=== PATIENT | male | born 1955 | race Two or more races ===

== ENCOUNTER 2016-04-26 12:32 | Emergency (ER) | payer OTHER ==
[~2016-04-26] VITALS: Ht 188 cm; Wt 158.8 kg
[2016-04-26 13:57] VITALS: BP 117/71
== END 2016-04-26 13:58 | disposition home or self-care (01) ==
LOC: ER 12:37
DX: J20.9 Acute bronchitis, unspecified (principal); I25.2 Old myocardial infarction; Z88.6 Allergy status to analgesic agent
CPT/HCPCS: 71010-TC; A4606; Z7610

== ENCOUNTER 2017-02-28 04:50 | Inpatient (IN) | payer SELFPAY ==
[~2017-02-28] VITALS: Ht 190.5 cm; Wt 171.5 kg
--- NOTE | 2017-02-28 04:55 | NUR ---
PT BIB GIRLFRIEND WITH A C/O SOB X 2 DAYS. PT IS SPEAKING IN COMPLETE SENTENCES. BREATH SOUNDS BILATERALLY. PT IS ALSO C/O GENERAL BODY ACHES. PT WAS ASSISTED INTO THE ER VIA WC FROM THE CAR. PT AMBULATED FROM THE WC TO THE RNEY. PT WAS PLACED ON THE MONITOR AND CONTINUOUS PULSE OX. PT SAT 97% ON RA. PT IS NOT SURE IF HE HAS HAD A TEMP. PT IS AFEBRILE.
[2017-02-28] MEDS ORDERED: ONDANSETRON HCL/PF 4 MG/2 ML VIAL IVP ONE (05:00)
[2017-02-28] MEDS ORDERED: MORPHINE SULFATE INJ 2 MG/ML DISP.SYRIN IV ONE (05:00)
[2017-02-28] MEDS ORDERED: IV NS 0.9% 1,000 ML BAG IV ONE (05:00)
[2017-02-28] MEDS ORDERED: ONDANSETRON HCL/PF 4 MG/2 ML VIAL ONE (05:06)
[2017-02-28] MEDS ORDERED: MORPHINE SULFATE INJ 2 MG/ML DISP.SYRIN ONE (05:06)
[2017-02-28] MEDS ORDERED: DILTIAZEM HCL 25 MG IV IV ONE (05:30)
[2017-02-28 05:34] LABS: BASOPHILS % (AUTO) 0.1 % (0.0-2.0); EOSINOPHILS # (AUTO) 0.2 /CMM (0.0-0.7); HEMATOCRIT 50 % (39-51); HEMOGLOBIN 16.8 g/dL (13.5-17.5); LYMPHOCYTES # (AUTO) 1.1 /CMM (0.8-4.8); LYMPHOCYTES % (AUTO) 11.1 % (20.0-44.0); MEAN CORPUSCULAR HEMOGLOBIN 29 PG (26.0-33.0); MEAN CORPUSCULAR HGB CONC 34 g/dl (31.0-36.0); MEAN CORPUSCULAR VOLUME 86 fL (80-96); MONOCYTES # (AUTO) 0.9 /CMM (0.1-1.30); MONOCYTES % (AUTO) 9.6 % (2.0-12.0); NEUTROPHILS # (AUTO) 7.6 /CMM (1.8-8.9); NEUTROPHILS % (AUTO) 77.2 % (43.0-81.0); PLATELET COUNT (AUTO) 183 /CMM (150-450); RDW COEFFICIENT OF VARIATION 13.7 (11.5-15.0); WHITE BLOOD COUNT (AUTO) 9.8 K/uL (4.3-11.0)
[2017-02-28 05:46] LABS: CARBON DIOXIDE 25 mmol/L (21-32); CHLORIDE 104 mmol/L (98-107); CREATININE 1.3 mg/dL (0.6-1.3); GLUCOSE 136 mg/dL (74-106); POTASSIUM 3.8 mmol/L (3.5-5.1); SODIUM SERUM 140 mmol/L (136-145); UREA NITROGEN, BLOOD 9 mg/dL (7-18)
--- NOTE | 2017-02-28 05:48 | NUR ---
PT REC'ING DILTIAZEM FOR NEW ONSET AFIB.
[2017-02-28 05:52] LABS: ALANINE AMINOTRANSFERASE 30 U/L (12-78); ALKALINE PHOSPHATASE 60 U/L (46-116); ASPARTATE AMINOTRANSFERASE 26 U/L (15-37); BILIRUBIN,DIRECT 0.1 mg/dL (0.0-0.2); BILIRUBIN,TOTAL 0.7 mg/dL (0.2-1.0); TROPONIN I < 0.017 ng/mL (0.00-0.056)
--- NOTE | 2017-02-28 05:55 | NUR ---
CARDIZEM 20MG SLOW IVP GIVEN FOR NEW ONSET AFIB/AFLUTTER. ONGOING CARDIAC AND VS MONITORING.
[2017-02-28] MEDS ORDERED: DILTIAZEM HCL 25 MG IV ONE (05:56)
[2017-02-28] MEDS ORDERED: ASPIRIN 325 MG TABLET ONE (05:56)
--- NOTE | 2017-02-28 05:58 | NUR ---
PT IS GOING IN AND OUT OF AFIB/ AFLUTTER. AWARE.
[2017-02-28] MEDS ORDERED: ASPIRIN 325 MG TABLET PO ONE (06:00)
--- NOTE | 2017-02-28 06:02 | NUR ---
PAGED DR SAM.
--- NOTE | 2017-02-28 06:12 | NUR ---
REPORT GIVEN TO GARCÍA LOVELL/CHG
--- NOTE | 2017-02-28 06:25 | NUR ---
PT WAS PLACED ON 2L O2 VIA NC. PT IS SATURATING AT 93-95% ON RA.
--- NOTE | 2017-02-28 06:26 | NUR ---
PT IS BEING TRANSPORTED TO TELE VIA GURNEY PER PROTOCOL.
[2017-02-28] MEDS ORDERED: ACETAMINOPHEN 325 MG TABLET PO PRN (06:30)
[2017-02-28] MEDS ORDERED: LEVALBUTEROL HCL NEB 1.25 MG/0.5 ML VIAL.NEB NEB PRN (06:30)
[2017-02-28] MEDS ORDERED: ONDANSETRON HCL/PF 4 MG/2 ML VIAL IVP PRN (06:30)
[2017-02-28] MEDS ORDERED: HYDROCODONE/APAP 5/325MG 1 EACH TABLET PO PRN (06:30)
[2017-02-28] MEDS ORDERED: MAGNESIUM HYDROXIDE 30 ML UDC PO PRN (06:30)
[2017-02-28] MEDS: PANTOPRAZOLE 40 MG TABLET.DR PO SCH (07:30)
--- NOTE | 2017-02-28 07:30 | NUR ---
SUPERCHARGE REPAIR SUPERVISOR OPENING NOTE PATIENT IS ALERT AND ORIENTED x3. NO PAIN AT THIS TIME. NO SOB OR DISTRESS NOTED. ON ROOM AIR O2 SATURATION AT 94% TOLERATING WELL. ABLE TO COMMUNICATE NEEDS. IV ON LEFT AC 18G INTACT AND PATENT, NO FLUIDS AT THIS TIME. ALL BELONGINGS WITH PATIENT AT BEDSIDE. SKIN INTACT. PATIENT BROUGHT IN BY STATING THAT HE HAS BODY ACHES, COUGH AND FEVER FOR MORE THAN TWO DAYS. HISTORY OF NM IN THE PAST. ALL LABS WITHIN NORMAL LIMITS. CHEST X-RAY SHOWED CARDIOMEGALY. ON TELE [id number]. LABS THIS MORNING. BRP. ALLERGIC TO IBUPROFEN, ALLERGY DOCUMENTED. FULL CODE. WILL CONTINUE TO MONITOR
[2017-02-28] MEDS ORDERED: AMIODARONE 900 MG in IV D5W 500 ML IV PRN (09:00)
--- NOTE | 2017-02-28 09:21 | NUR ---
RN NOTE PATIENT WILL BE TRANSFERRED TO [facility] ROOM 103
[2017-02-28 09:48] LABS: INR 0.96 (0.87-1.13)
--- NOTE | 2017-02-28 09:52 | NUR ---
TD RN OPENING RECEIVED PATIENT A/OX4 SLEEPING WELL. NO S/S SOB, DIFFICULTY BREATHING OR PAIN AT THIS TIME. TELE AFIB 80-88. PATIENT AT REST. STATES NO NEEDS AT THIS TIME. NEEDS IN REACH, BED LOWERED AND LOCKED, RAILS UPX3 FOR SAFETY AND WILL ROUND PER PROTOCOL/ PATIENTS NEEDS
[2017-02-28 10:00] VITALS: BP 136/77
[2017-02-28] MEDS ORDERED: ALBUTEROL FS 2.5 MG/3 ML VIAL.NEB NEB PRN (10:00)
[2017-02-28] MEDS ORDERED: AMIODARONE 150 MG in IV D5W 100 ML IV ONE (10:00)
[2017-02-28 10:03] VITALS: BP 136/77
--- NOTE | 2017-02-28 10:03 | NUR ---
TD RN NOTES SPOKE WITH PHARMACY TO BRING AMIO BOLUS WE DO NOT HAVE STILL
[2017-02-28] MEDS: METOPROLOL TARTRATE 25 MG TABLET PO SCH ×2 (10:26→21:45)
[2017-02-28 10:28] LABS: MAGNESIUM 1.7 mg/dL (1.8-2.4); PHOSPHORUS 2.4 mg/dL (2.5-4.9)
--- NOTE | 2017-02-28 10:51 | NUR ---
TD RN NOTES CALLED PHARMACY UNABLE TO INSERT ORDERED 33.3ML/HOUR FOR TITRATE PRN BAG. PER ANGLE THEY WILL SEND CORRECTED ADMIN
[2017-02-28] MEDS ORDERED: NEUTRA PHOS 1 POWD.PACKET PO ONE (11:00)
[2017-02-28] MEDS: AMIODARONE 900 MG in IV D5W 482 ML IV PRN ×2 (11:08→17:19)
--- NOTE | 2017-02-28 11:10 | NUR ---
TD RN NOTES SPOKE WITH DR TALAVERA AND CONFIRMED TO CONTINUE AMIODARONE DRIP UNTIL COMPLETE. UPDATED MD ON PATIENT HEART RATE WITH AND WITHOUT ACTIVITY
[2017-02-28 12:00] VITALS: BP 124/78
[2017-02-28] MEDS ORDERED: DILTIAZEM HCL 30 MG TABLET PO SCH (12:00)
[2017-02-28 12:18] LABS: THYROID STIMULATING HORMONE 0.564 uIU/mL (0.358-3.74)
--- NOTE | 2017-02-28 15:58 | NUR ---
td rn notes patient had a nose bleed which has stopped. notified dr gutiérrez and tristen hudson continue with emerald
[2017-02-28 16:00] VITALS: BP 151/91
--- NOTE | 2017-02-28 16:05 | NUR ---
TD RN NOTES CONFIRMED WITH PATIENT AND FAMILY MEMBER PATIENT DOES NOT HAVE ANY ALLERGIES.
[2017-02-28] MEDS: RIVAROXABAN 10 MG TABLET PO SCH (17:25)
--- NOTE | 2017-02-28 19:03 | NUR ---
RN TD NOTES NO ACUTE SIGNIFICANT CHANGES WITHIN SHIFT. ON ROOM AIR TOLERATING WELL. IV AT CALVIN ARM NO SIGNS OF INFECTION OR REDNESS. INFUSION RUNNING WELL. KEPT HEAD OF BED ELEVATED. SIDE RAILS WERE UP. CALLS LIGHTS WITHIN REACH. WILL CONTINUE TO MONITOR. ALL DUE MEDS GIVEN. NEEDS ATTENDED. WILL ENDORSE TO THE PM NURSE.
[2017-02-28 20:00] VITALS: BP 131/60
--- NOTE | 2017-02-28 20:09 | NUR ---
RN OPENING NOTE RECEIVED PATIENT IN THE BED, ALERT/ORIENTED, NO DISTRESS NOTED, ON ROOM AIR. ADMITTING DX A-FIB ,HEART RATE 92, RESPIRATIONS 18, BP 131/60PATIENT DENIES PAIN OR DISCOMFORT. IV SITE LEFT AC INTACT, FLUSHING WELL, NO S/S OF INFECTION OR INFILTRATION NOTED, BED IN THE LOW POSITION, CALL LIGHT WITHIN REACH, SIDE RAILS UP X 2, WILL CONTINUE TO MONITOR
[2017-02-28] MEDS: ZOLPIDEM TARTRATE 5 MG TABLET PO PRN (21:42)
[2017-03-01] VITALS: BP 146/68
[2017-03-01 04:00] VITALS: BP 149/89
--- NOTE | 2017-03-01 06:45 | NUR ---
RN CLOSING NOTE PATIENT IS AWAKE, ALERT/ORIENTED X3, NO ACUTE DISTRESS, PAIN OR DISCOMFORT NOTED, IV IN THE LEFT HAND 20 GAUGE IS INTACT, FLUSHING WELL, NO S/S OF INFILTRATION NOTED, CONTINUE ON THE AMIODARONE DRIP, ALL NEEDS ATTENDED, CALL LIGHT WITHIN REACH, SIDE RAILS UP X2, BED IN THE LOW POSITION, ALL DUE MEDS WERE GIVEN. WILL ENDORSE REPORT TO THE NEXT SHIFT
[2017-03-01 07:11] LABS: BASOPHILS # (AUTO) 0.1 /CMM (0.0-0.2); BASOPHILS % (AUTO) 0.9 % (0.0-2.0); EOSINOPHILS % (AUTO) 0.4 % (0.0-6.0); HEMATOCRIT 46 % (39-51); HEMOGLOBIN 15.3 g/dL (13.5-17.5); LYMPHOCYTES # (AUTO) 1.7 /CMM (0.8-4.8); LYMPHOCYTES % (AUTO) 24.3 % (20.0-44.0); MEAN CORPUSCULAR HEMOGLOBIN 29 PG (26.0-33.0); MEAN CORPUSCULAR HGB CONC 33 g/dl (31.0-36.0); MEAN CORPUSCULAR VOLUME 85 fL (80-96); MONOCYTES % (AUTO) 14.8 % (2.0-12.0); NEUTROPHILS # (AUTO) 4.2 /CMM (1.8-8.9); NEUTROPHILS % (AUTO) 59.6 % (43.0-81.0); PLATELET COUNT (AUTO) 148 /CMM (150-450); RDW COEFFICIENT OF VARIATION 13.7 (11.5-15.0); RED BLOOD CELL COUNT(AUTO) 5.35 MIL/uL (4.5-6.0)
[2017-03-01 07:18] LABS: ALANINE AMINOTRANSFERASE 23 U/L (12-78); ALBUMIN 3.5 g/dL (3.4-5.0); ALKALINE PHOSPHATASE 54 U/L (46-116); ASPARTATE AMINOTRANSFERASE 29 U/L (15-37); BILIRUBIN,TOTAL 0.7 mg/dL (0.2-1.0); CALCIUM, SERUM 8.2 mg/dL (8.5-10.1); CARBON DIOXIDE 22 mmol/L (21-32); CHLORIDE 102 mmol/L (98-107); GLUCOSE 122 mg/dL (74-106); MAGNESIUM 1.8 mg/dL (1.8-2.4); PHOSPHORUS 2.8 mg/dL (2.5-4.9); POTASSIUM 3.8 mmol/L (3.5-5.1); SODIUM SERUM 136 mmol/L (136-145); TOTAL PROTEIN, SERUM 7.4 g/dL (6.4-8.2); UREA NITROGEN, BLOOD 8 mg/dL (7-18)
[2017-03-01 07:44] LABS: CHOLESTEROL 166 mg/dL (<200); HDL CHOLESTEROL 38 mg/dL (40-60); LDL 110 mg/dL (0-99); THYROID STIMULATING HORMONE 0.597 uIU/mL (0.358-3.74); TRIGLYCERIDES 123 mg/dL (30-150)
[2017-03-01 08:00] VITALS: BP 136/88
[2017-03-01] MEDS: PANTOPRAZOLE 40 MG TABLET.DR PO SCH (08:00)
--- NOTE | 2017-03-01 08:00 | NUR ---
AWAKE, ALERT AND ORIENTED. FAMILY AT BEDSIDE. REMAINS ON AFIB-CONTROLLED RATE. ONGOING AMIODARONE DRIP AT 0.5 MG/MIN. DENIES SOB, DENIES PALPITATION OR CHEST PAIN.
[2017-03-01 08:58] LABS: TROPONIN I < 0.017 ng/mL (0.00-0.056)
[2017-03-01] MEDS: METOPROLOL TARTRATE 25 MG TABLET PO SCH ×2 (09:16→20:40)
[2017-03-01] MEDS: ASPIRIN 81 MG TAB.CHEW PO SCH (09:16)
--- NOTE | 2017-03-01 10:00 | NUR ---
DR. TALAVERA AT BEDSIDE-MD SPOKE TO PATIENT REGARDING PLAN OF CARE. MD TO CONTINUE WITH CURRENT TREATMENT AT THIS TIME. POSSIBLE DISCHARGE IN AM.
[2017-03-01] MEDS: AMIODARONE HCL 200 MG TABLET PO SCH ×2 (12:54→16:48)
--- NOTE | 2017-03-01 13:05 | NUR ---
AMIODARONE DRIP COMPLETED- SWITCHED TO PO AMIO 400 MG GIVEN PER MD ORDER.
[2017-03-01] MEDS: RIVAROXABAN 10 MG TABLET PO SCH (16:48)
--- NOTE | 2017-03-01 18:00 | NUR ---
REMAINS ON CONTROLLED AFIB AT 70'S. NO CHEST PAIN/SOB PRESENTED.
--- NOTE | 2017-03-01 19:40 | NUR ---
RN NOTES RECEIVED PT AWAKE SITTING ON HIS CHAIR, AOX4 ABLE TO MAKE KNOWN NEEDS. DENIES PAIN. WARMTH TO TOUCH. AFEBRILE. NO ACUTE RESP DISTRESS ON ROOM AIR. WITH TELE MONITOR REVEALS A-FIB HR 95 DENIES CHEST PAIN. ABLE TO DO B/B INDEPENDENTLY. IV SITE ON LAC G 18 AND LEFT HAND G 20 INTACT AND PATENT. INSTRUCTED TO USED CALL LIGHT WHEN NEED ASSISTANCE. KEPT PT CLEAN AND DRY. WILL MONITOR FREQUENTLY.
[2017-03-01 20:00] VITALS: BP 105/54
[2017-03-01] MEDS: ZOLPIDEM TARTRATE 5 MG TABLET PO PRN (20:40)
[2017-03-02 04:00] VITALS: BP 124/86
[2017-03-02 06:54] LABS: BASOPHILS % (AUTO) 0.6 % (0.0-2.0); EOSINOPHILS # (AUTO) 0.1 /CMM (0.0-0.7); HEMATOCRIT 47 % (39-51); HEMOGLOBIN 15.9 g/dL (13.5-17.5); LYMPHOCYTES % (AUTO) 35.3 % (20.0-44.0); MEAN CORPUSCULAR HEMOGLOBIN 29 PG (26.0-33.0); MEAN CORPUSCULAR HGB CONC 34 g/dl (31.0-36.0); MEAN CORPUSCULAR VOLUME 86 fL (80-96); MONOCYTES # (AUTO) 0.8 /CMM (0.1-1.30); MONOCYTES % (AUTO) 14.6 % (2.0-12.0); NEUTROPHILS # (AUTO) 2.7 /CMM (1.8-8.9); NEUTROPHILS % (AUTO) 48.5 % (43.0-81.0); PLATELET COUNT (AUTO) 149 /CMM (150-450); RDW COEFFICIENT OF VARIATION 14.2 (11.5-15.0); WHITE BLOOD COUNT (AUTO) 5.6 K/uL (4.3-11.0)
[2017-03-02 06:59] LABS: CALCIUM, SERUM 8.4 mg/dL (8.5-10.1); MAGNESIUM 2.1 mg/dL (1.8-2.4); PHOSPHORUS 3.6 mg/dL (2.5-4.9); POTASSIUM 3.3 mmol/L (3.5-5.1)
--- NOTE | 2017-03-02 07:05 | NUR ---
RN INITIAL NOTE PATIENT RECEIVED IN BED. PATIENT IS AWAKE, ALERT AND ORIENTED. ABLE TO MAKE NEEDS KNOWN. NO S/S OF PAIN OR DISCOMFORT. DENIES PAIN AT THIS TIME. CONTROLLED AFIB ON TELE MONITOR. HEART RATE:73. RESPIRATIONS ARE EVEN AND UNLABORED. NO S/S OF RESPIRATORY DISTRESS OR SOB. SATING WELL ON ROOM AIR. SKIN IS WARM AND DRY TO TOUCH. IV SITE FLUSHED, PATENT. SAFETY PRECAUTIONS IMPLEMENTED, BED IN LOCKED, LOW POSITION WITH TWO SIDE RAILS UP. CALL LIGHT AND BELONGINGS WITHIN EASY REACH. WILL CONTINUE TO MONITOR.
--- NOTE | 2017-03-02 07:10 | NUR ---
RN NOTES PT ASLEEP WELL ON BED. BREATHING EVEN AND UNLABORED IN ROOM AIR. REMAINED A-FIB HR 70'S ON TELE MONITOR. MOTIVATED TO HAVE BED BATH PT REFUSED. DUE MEDICINE TOLERATED WELL. NO SIGNIFICANT CHANGES. IV SITE INTACT AND PATENT. WILL ENDORSED CONTINUITY OF CARE TO AM NURSE.
[2017-03-02 08:00] VITALS: BP 141/88
[2017-03-02] MEDS: ASPIRIN 81 MG TAB.CHEW PO SCH (08:36)
[2017-03-02] MEDS: PANTOPRAZOLE 40 MG TABLET.DR PO SCH (08:36)
[2017-03-02] MEDS: METOPROLOL TARTRATE 25 MG TABLET PO SCH (08:37)
[2017-03-02] MEDS: AMIODARONE HCL 200 MG TABLET PO SCH (08:37)
[2017-03-02 12:00] VITALS: BP 94/54
[2017-03-02] MEDS ORDERED: POTASSIUM CHLORIDE 20 MEQ TAB.PRT.SR PO SCH ×2 (12:00)
[2017-03-02] MEDS ORDERED: METOPROLOL TARTRATE 25 MG TABLET PO SCH (12:00)
--- NOTE | 2017-03-02 12:30 | NUR ---
RN CLOSING NOTE PATIENT LEFT AMA. INFORMED MD OF PATIENTS REQUEST TO BE DISCHARGED. DR BECK WAS ON HER WAY TO SEE PATIENT WHEN HE DECIDED HE NO LONGER WANTED TO WAIT. IV SITE AND ID BAND REMOVED.
== END 2017-03-02 12:44 | disposition left against medical advice (07) | DRG 309 ==
LOC: ER 04:52 → TELE 06:04 → MED 08:47 → TELE 08:48 → TELE-TD 09:28 → TELE1 03-01 11:03
PROVIDERS: ADMIT Internal Medicine; ATTEND Internal Medicine
DX: I48.91 Unspecified atrial fibrillation (principal); D68.59 Other primary thrombophilia; E87.8 Other disorders of electrolyte and fluid balance, not elsewhere classified; E44.0 Moderate protein-calorie malnutrition; E66.01 Morbid (severe) obesity due to excess calories; Z68.42 Body mass index [BMI] 45.0-49.9, adult; I25.10 Atherosclerotic heart disease of native coronary artery without angina pectoris; E78.5 Hyperlipidemia, unspecified; G47.33 Obstructive sleep apnea (adult) (pediatric); I10 Essential (primary) hypertension; Z98.61 Coronary angioplasty status
CPT/HCPCS: 36415; 71010-TC; 80048-TC; 80053-TC; 80061-TC; 80076-TC; 82306; 83735-TC; 83880; 84100-TC; 84439-TC; 84443-TC; 84484-TC; 85025-TC; 85610-TC; 85730-TC; 87040-TC; 87081-TC; 87400; 93307-TC; J0282; J2270; J2405; J3490; J7030; J7060; Z7610

== ENCOUNTER 2018-04-20 14:30 | Emergency (ER) | payer OTHER ==
[~2018-04-20] VITALS: Ht 188 cm; Wt 181.9 kg
[2018-04-20 14:35] VITALS: BP 129/92
== END 2018-04-20 15:01 | disposition home or self-care (01) ==
LOC: ER 14:37
DX: H60.91 Unspecified otitis externa, right ear (principal)
CPT/HCPCS: 99283; A4606; Z7610

== ENCOUNTER 2021-03-15 23:31 | Emergency (ER) | payer OTHER ==
[~2021-03-15] VITALS: Ht 188 cm; Wt 154.2 kg
[2021-03-15 23:50] VITALS: BP 118/78
--- NOTE | 2021-03-16 | NUR ---
COVID SWAB DONE AND SENT TO LAB
--- NOTE | 2021-03-16 00:03 | NUR ---
Patient discharged to home in stable condition. Written and verbal after care instructions given. Patient verbalizes understanding of instruction. Pt ambulatory with a steady gait
== END 2021-03-16 00:05 | disposition home or self-care (01) ==
LOC: ER 23:33
DX: U07.1 COVID-19 (principal); M79.10 Myalgia, unspecified site; E66.01 Morbid (severe) obesity due to excess calories; Z68.41 Body mass index [BMI] 40.0-44.9, adult; E11.9 Type 2 diabetes mellitus without complications
CPT/HCPCS: 99283; C9803; U0003

== ENCOUNTER 2022-12-25 16:33 | Emergency (ER) | payer OTHER ==
[~2022-12-25] VITALS: Ht 188 cm; Wt 145.1 kg
[2022-12-25 17:44] VITALS: BP 134/81; TEMP 98.2; O2SAT 98
[2022-12-25] MEDS ORDERED: COLC0.6C3 PO (18:27)
[2022-12-25] MEDS ORDERED: KETOROLAC TROMETHAMINE INJ 30 MG/ML VIAL ONE (18:28)
[2022-12-25] MEDS ORDERED: COLCHICINE 0.6 MG TABLET ONE (18:29)
[2022-12-25] MEDS ORDERED: KETOROLAC TROMETHAMINE INJ 60 MG/2 ML VIAL IM ONE (18:30)
[2022-12-25] MEDS ORDERED: COLCHICINE 0.6 MG TABLET PO ONE (18:30)
== END 2022-12-25 20:30 | disposition home or self-care (01) ==
LOC: ER 17:05
DX: M10.9 Gout, unspecified (principal); E11.9 Type 2 diabetes mellitus without complications; Z88.6 Allergy status to analgesic agent
CPT/HCPCS: 99283; 96372; J1885

== ENCOUNTER 2025-02-06 00:48 | Emergency (ER) | payer OTHER ==
[~2025-02-06] VITALS: Ht 188 cm; Wt 154.2 kg
[~2025-02-06 00:48] MED LIST: COLC0.6C3 PO
[2025-02-06] MEDS: IPRATROPIUM NEB FS 0.5 MG/2.5 ML AMPUL.NEB NEB STA (01:19)
[2025-02-06] MEDS: ALBUTEROL FS 2.5 MG/0.5 ML VIAL.NEB NEB STA (01:19)
[2025-02-06] MEDS ORDERED: ALBUTEROL FS 2.5 MG/0.5 ML VIAL.NEB ONE (01:22)
[2025-02-06] MEDS ORDERED: IPRATROPIUM NEB FS 0.5 MG/2.5 ML AMPUL.NEB ONE (01:22)
[2025-02-06] MEDS ORDERED: ACETAMINOPHEN ES 500 MG TABLET ONE (01:23)
[2025-02-06 01:26] VITALS: O2SAT 97
[2025-02-06] MEDS: ACETAMINOPHEN ES 500 MG TABLET PO ONE (01:27)
[2025-02-06 01:36] LABS: PLATELET COUNT (AUTO) 150 K/uL (150-450); RED BLOOD CELL COUNT(AUTO) 5.57 MIL/uL (4.5-6.0); RED CELL DISTRIBUTION WIDTH 14.0 % (11.5-15.0); WHITE BLOOD COUNT (AUTO) 6.6 K/uL (4.3-11.0)
[2025-02-06 01:41] VITALS: O2SAT 99
[2025-02-06 01:44] LABS: CALCIUM, SERUM 8.4 mg/dL (8.5-10.1); CREATININE 0.9 mg/dL (0.6-1.3); SODIUM SERUM 133.0 mmol/L (136-145); UREA NITROGEN, BLOOD 8.0 mg/dL (7-18)
[2025-02-06 01:49] LABS: ASPARTATE AMINOTRANSFERASE 34.0 U/L (15-37); TOTAL PROTEIN, SERUM 7.5 g/dL (6.4-8.2)
[2025-02-06] MEDS ORDERED: BENZ-13 PO (02:34)
[2025-02-06] MEDS ORDERED: ACET-3102 PO (02:34)
[2025-02-06] MEDS ORDERED: ONDA4TAB5 PO (02:34)
[2025-02-06 03:06] VITALS: BP 148/81; TEMP 98; O2SAT 99
== END 2025-02-06 03:07 | disposition home or self-care (01) ==
LOC: ER 00:52
DX: R06.02 Shortness of breath (principal); R05.9 Cough, unspecified; R50.9 Fever, unspecified; E11.9 Type 2 diabetes mellitus without complications; M10.9 Gout, unspecified; Z87.891 Personal history of nicotine dependence; Z88.6 Allergy status to analgesic agent
CPT/HCPCS: 99285; 71045; 93005 ×2; 84145; 85025; 83735; 36415; 80053; 86140; 94640; J7512